=== PATIENT | male | born 1940 | race Caucasian/White ===

== ENCOUNTER → 2017-02-25 | Outpatient (CLI) | payer MEDICARE, MEDICAID ==
[2017-02-25 13:10] LABS: BLOOD UREA NITROGEN 20 mg/dL (7-18)
[2017-02-25 13:12] LABS: ASPARTATE AMINO TRANSFERASE 29 U/L (15-37)
== END | disposition home or self-care (01) ==
LOC: CFH 09:23
PROVIDERS: ATTEND Nurse Practitioner Family
DX: E78.2 Mixed hyperlipidemia (principal); E11.9 Type 2 diabetes mellitus without complications; I10 Essential (primary) hypertension; I35.0 Nonrheumatic aortic (valve) stenosis
CPT/HCPCS: 36415; 80053; 80061